=== PATIENT | male | born 1960 | race Two or more races ===

== ENCOUNTER 2017-10-07 01:26 | Inpatient (IN) | payer OTHER ==
[2017-10-07] VITALS (32 sets, daily range): BP systolic 94–143; BP diastolic 59–85
[~2017-10-07] VITALS: Ht 177.8 cm; Wt 70.8 kg
--- NOTE | 2017-10-07 01:40 | NUR ---
[id number] FR 4 SEASONS FOR FEVER 102, FAST HR 140'S IN THE FIELD, RECENT TBI W/ SUBDURAL HEMATOMA SX 09/20/17. PT TRANSFERED TO ER BED5 EVERARDO. PT IS AAOX0. PT SKIN IS PINK AND HOT TO TOUCH. PT RESP EVEN AND NO RESP DISTRESS NOTED. PT PRESENTS WITH A G-TUBE IN PLACE ALONG WITH A 24G IV ON THE L FOREARM. PT ALSO PRESENTS WITH DREW IN PLACE OVER SCALP. AWAITING MD FOR EVAL.
--- NOTE | 2017-10-07 01:45 | NUR ---
PT TRANSPORTED TO RADIOLOGY FOR CT HEAD.
[2017-10-07] MEDS ORDERED: PIPERACILLIN /TAZOBACTAM 3.375 G in IV D5W 50 ML IV ONE (02:00)
[2017-10-07] MEDS ORDERED: ACETAMINOPHEN 650 MG/SUPP.RECT RC ONE (02:00)
[2017-10-07] MEDS ORDERED: VANCOMYCIN 1 GM in IV D5W 250 ML IV ONE (02:00)
[2017-10-07] MEDS ORDERED: IV NS 0.9% 1,000 ML BAG IV ONE (02:00)
[2017-10-07] MEDS ORDERED: PIPERACILLIN /TAZOBACTAM 3.375 G VIAL IV ONE (02:02)
--- NOTE | 2017-10-07 02:11 | NUR ---
TERE DILLARD TALKING TO RADIOLOGIST.
[2017-10-07 02:20] LABS: BASOPHILS % (AUTO) 0.1 % (0.0-2.0); EOSINOPHILS # (AUTO) 0.1 /CMM (0.0-0.7); EOSINOPHILS % (AUTO) 0.8 % (0.0-6.0); HEMATOCRIT 27 % (39-51); HEMOGLOBIN 9.3 g/dL (13.5-17.5); LYMPHOCYTES % (AUTO) 6.1 % (20.0-44.0); MEAN CORPUSCULAR HEMOGLOBIN 33 PG (26.0-33.0); MEAN CORPUSCULAR HGB CONC 35 g/dl (31.0-36.0); MEAN CORPUSCULAR VOLUME 94 fL (80-96); MONOCYTES # (AUTO) 1.1 /CMM (0.1-1.30); MONOCYTES % (AUTO) 6.9 % (2.0-12.0); NEUTROPHILS % (AUTO) 86.1 % (43.0-81.0); PLATELET COUNT (AUTO) 324 /CMM (150-450); RDW COEFFICIENT OF VARIATION 17.1 (11.5-15.0); RED BLOOD CELL COUNT(AUTO) 2.86 MIL/uL (4.5-6.0); WHITE BLOOD COUNT (AUTO) 16.3 K/uL (4.3-11.0)
[2017-10-07] MEDS ORDERED: ACETAMINOPHEN 650 MG/20.3 ML UDC ONE (02:28)
[2017-10-07] MEDS ORDERED: VANCOMYCIN 1 GM VIAL ONE (02:29)
[2017-10-07 02:35] LABS: CALCIUM, SERUM 9.1 mg/dL (8.5-10.1); CARBON DIOXIDE 23 mmol/L (21-32); CHLORIDE 110 mmol/L (98-107); CREATININE 2.9 mg/dL (0.6-1.3); GLUCOSE 120 mg/dL (74-106); POTASSIUM 3.2 mmol/L (3.5-5.1); SODIUM SERUM 145 mmol/L (136-145); UREA NITROGEN, BLOOD 37 mg/dL (7-18)
[2017-10-07 02:37] LABS: INR 1.13 (0.87-1.13)
[2017-10-07 02:41] LABS: TROPONIN I < 0.017 ng/mL (0.00-0.056)
[2017-10-07 02:42] LABS: ALANINE AMINOTRANSFERASE 42 U/L (12-78); ALKALINE PHOSPHATASE 310 U/L (46-116); ASPARTATE AMINOTRANSFERASE 68 U/L (15-37); BILIRUBIN,DIRECT 1.7 mg/dL (0.0-0.2); BILIRUBIN,TOTAL 3.1 mg/dL (0.2-1.0)
[2017-10-07 02:59] LABS: ALBUMIN 1.4 g/dL (3.4-5.0)
--- NOTE | 2017-10-07 03:13 | NUR ---
[facility] CALLED FOR ICU BED.
[2017-10-07 03:30] LABS: APPEARANCE,URINE CLEAR (CLEAR); BILIRUBIN,URINE NEGATIVE (NEGATIVE); BLOOD, URINE 2+ Ery/uL (NEGATIVE); KETONES,URINE NEGATIVE (NEGATIVE); LEUKOCYTE ESTERASE ,URINE NEGATIVE (NEGATIVE); NITRITE, URINE NEGATIVE (NEGATIVE); PROTEIN,URINE 1+ mg/dl (NEGATIVE); UGLUCOSE NEGATIVE (NEGATIVE); UROBILINOGEN,URINE 0.2 EU/dL (0.2)
[2017-10-07 03:32] LABS: COLOR,URINE DARK YELLOW (YELLOW)
[2017-10-07 03:35] LABS: BACTERIA,URINE Moderate /HPF (None Seen); RBC,URINE 21-50 /HPF (0-2); SQUAMOUS EPITHELIAL CELL,UR Moderate /HPF (None Seen)
[2017-10-07] MEDS ORDERED: ACETAMINOPHEN 325 MG TABLET MC STA (03:38)
--- NOTE | 2017-10-07 03:44 | NUR ---
GAVE REPORT TO ICU NURSE PRAFUL FOR CIRA, PT BEING TRANSPORTED VIA ACLS PROTOCOL.
--- NOTE | 2017-10-07 04:11 | NUR ---
rt bedside to receive vbg
[2017-10-07 04:13] LABS: ABG BASE EXCESS -5.3 mmol/L; ABG OXYGEN SATURATION 92.9 % (92.0-98.5); ABG PCO2 29.2 mmHg (35.0-45.0); ABG PH 7.416 (7.350-7.450); ABG PO2 68.7 mmHg (75.0-100.0); COHb 0.9 % (0.5-1.5); MetHb 0.6 % (0.0-1.5); O2Hb 91.5 % (94.0-97.0); VENT MODE, BG VENOUS 2L NC
[2017-10-07] MEDS ORDERED: MAG HYDROX/AL HYDROX/SIMETH 30 ML UDC PO PRN (04:30)
[2017-10-07] MEDS ORDERED: Z GUARD REMEDY 2 OZ OINT TP PRN (04:30)
[2017-10-07] MEDS ORDERED: MAGNESIUM HYDROXIDE 30 ML UDC PO PRN (04:30)
[2017-10-07] MEDS ORDERED: ZOLPIDEM TARTRATE 5 MG TABLET PO PRN (04:30)
[2017-10-07] MEDS ORDERED: ACETAMINOPHEN 325 MG TABLET PO PRN (04:30)
[2017-10-07] MEDS ORDERED: ONDANSETRON HCL/PF 4 MG/2 ML VIAL IVP PRN (04:30)
--- NOTE | 2017-10-07 05:15 | NUR ---
PT TRANSFERED TO ICU. ACLS PROTOCOLS INITIATED DURING TRANSPORT.
[2017-10-07] MEDS: IV NS 0.9% 1,000 ML IV PRN ×2 (05:29→16:48)
--- NOTE | 2017-10-07 05:40 | NUR ---
DEPUTY DIRECTOR OF NURSING;' ADMISSION NOTE: RECEIVED PT FROM ER AT 0505, DX SEPSIS, PNEUMONIA, ADMITTED UNDER DR KNAPP, PT IS AAO X1-2 WITH SOMEWHAT CONFUSION. PATIENT RECENTLY DISCHARGED FROM [facility] AFTER HAD CRANIOTOMY DONE THERE DUE TO TBI. ON 3L NASAL CANNULA SATURATING 98%. SEPSIS PROTOCOL INITIATED IN ER, 2.7L FLUID CHALLANGED COMPLETED. V/S STABLE. ONGOING NS AT 125 ML/HR. PATIENT NOT IN ANY DISTRESS AT THIS TIME. PIV LEFT AND RIGHT HAND # 18, THERE IS PIV FROM [facility]IT[facility] LEFT FOREARM #24. SKIN ISSUE, SACRUM SEVERE REDNESS, EXCORIATION ON PERIANAL AREAS ALONG WITH RASHES. S/P CRANIOTOMY DREW PRESENT ON FRONTAL PART OF HEAD, INTACT, NO DRAINAGE NOTED. WOUND CARE CONSULTED. G-TUBE INTACT, CLAMPED. WILL ENDORSE CARE TO NEXT SHIFT.
[2017-10-07] MEDS ORDERED: PANT40TA2 GT (06:11)
[2017-10-07] MEDS ORDERED: FOLI1TAB16 GT (06:11)
[2017-10-07] MEDS ORDERED: OXCA300T GT (06:11)
[2017-10-07] MEDS ORDERED: AMAN100T GT (06:11)
[2017-10-07] MEDS ORDERED: ATOR20TA GT (06:11)
[2017-10-07] MEDS ORDERED: LEVE1000 GT (06:11)
[2017-10-07] MEDS ORDERED: HEPA500020 SUBCUT (06:11)
[2017-10-07] MEDS ORDERED: PRAZ2CAP2 GT (06:11)
[2017-10-07] MEDS ORDERED: BUSP15TA3 GT (06:14)
[2017-10-07] MEDS ORDERED: FLUO40CA49 GT (06:14)
[2017-10-07] MEDS ORDERED: LACT-209 GT (06:15)
--- NOTE | 2017-10-07 06:21 | NUR ---
WOMEN DESIGNER; 0600 ZOSYN DOSE NOT GIVEN , BECAUSE ITS TOO EARLY, LAST DOSE GIVEN IN ER AT 0200. CURRENT FREQUENCY Q6H. WILL ENDORSE TO NEXT SHIFT . NEXT DOSE WILL BE AT 0800 AM.
[2017-10-07 07:30] LABS: BASOPHILS % (AUTO) 0.1 % (0.0-2.0); EOSINOPHILS # (AUTO) 0.2 /CMM (0.0-0.7); EOSINOPHILS % (AUTO) 1.7 % (0.0-6.0); HEMATOCRIT 28 % (39-51); HEMOGLOBIN 9.3 g/dL (13.5-17.5); LYMPHOCYTES % (AUTO) 6.6 % (20.0-44.0); MEAN CORPUSCULAR HEMOGLOBIN 32 PG (26.0-33.0); MEAN CORPUSCULAR HGB CONC 34 g/dl (31.0-36.0); MEAN CORPUSCULAR VOLUME 95 fL (80-96); MONOCYTES % (AUTO) 6.9 % (2.0-12.0); NEUTROPHILS # (AUTO) 12.7 /CMM (1.8-8.9); NEUTROPHILS % (AUTO) 84.7 % (43.0-81.0); PLATELET COUNT (AUTO) 304 /CMM (150-450); RDW COEFFICIENT OF VARIATION 17.2 (11.5-15.0); RED BLOOD CELL COUNT(AUTO) 2.89 MIL/uL (4.5-6.0)
[2017-10-07 07:52] LABS: ALBUMIN 1.3 g/dL (3.4-5.0); BILIRUBIN,TOTAL 2.4 mg/dL (0.2-1.0); CALCIUM, SERUM 8.2 mg/dL (8.5-10.1); CREATININE 2.9 mg/dL (0.6-1.3); POTASSIUM 3.5 mmol/L (3.5-5.1); TOTAL PROTEIN, SERUM 5.8 g/dL (6.4-8.2)
[2017-10-07] MEDS ORDERED: NS 0.9% IV SCH ×2 (08:00→08:01)
[2017-10-07] MEDS ORDERED: TAZOBACTAM IV SCH ×2 (08:00→08:01)
[2017-10-07] MEDS ORDERED: PIPERACILLIN IV SCH ×2 (08:00→08:01)
--- NOTE | 2017-10-07 08:00 | NUR ---
ICU/RN INITIAL NOTES,AM RECEIVED REPORT FROM NIGHT NURSE. PT ALERT, AWAKE, FOLLOWS COMMANDS. ON NASAL CANULA, 2 LITERS, TOLERATING WELL, NO ACUTE DISTRESS NOTED. PT SINUS TACKY ON TELE 111. VSS. GTUBE IN PLACE, CLAMPED AT THIS TIME. PIV'S PATENT AND INTACT, NO S/S OF INFECTION OR INFILTRATION NOTED. IV FLUIDS INFUSING ORDERED. MCKENZIE IN PLACE, URINE OUTPUT NOTED. ALL NEEDS WILL BE MET, SAFETY MEASURES TAKEN, BED IN LOW POSITION, SIDE RAILS UP, CALL LIGHT WITHIN REACH. WILL CONTINUE CARE
--- NOTE | 2017-10-07 08:08 | NUR ---
WOUND CARE CONSULT: PT PRESENTS WITH DEEP TISSUE INJURY WHICH IS INTACT TO SACRAL AREA, PRESENT ON ADMISSION. PT ALSO NOTED TO HAVE RASH TO PERINEUM, GROIN AREAS AND BUTTOCKS, PRESENT ON ADMISSION. HEAD HAS DREW. NO DRAINAGE NOTED. PT IS INCONTINENT WITH CURRENT ANNA SCORE OF 13. ALL SKIN PROTECTION MEASURES IN PLACE AND DISCUSSED WITH NURSING STAFF. WILL SEE PRN. DILLARD IN AGREEMENT WITH PLAN OF CARE. Addendum: 10/07/17 at 0810 by JARRETT CLIFTON WNDNU Amended: Links added.
--- NOTE | 2017-10-07 08:15 | NUR ---
ICU/RN: WOUND CARE AT BEDSIDE. PT ASSESSED. NEW ORDERS RECEIVED, WILL FOLLOW THROUGH. PT TURNED AND REPOSITIONED.
[2017-10-07] MEDS ORDERED: FEE PK DOSING 1 MIN EA MC ONE (08:22)
[2017-10-07] MEDS: NS 0.9% IV SCH ×4 (08:30→23:47)
[2017-10-07] MEDS: TAZOBACTAM IV SCH ×4 (08:30→23:47)
[2017-10-07] MEDS: PIPERACILLIN IV SCH ×4 (08:30→23:47)
[2017-10-07] MEDS: PANTOPRAZOLE 40 MG VIAL IV SCH (08:30)
--- NOTE | 2017-10-07 09:03 | NUR ---
ICU/RN: US AT BEDSIDE FOR ABDOMINAL US
[2017-10-07] MEDS: CLOTRIMAZOLE 1% 15 GM TUBE TP SCH ×2 (09:46→17:42)
--- NOTE | 2017-10-07 11:30 | NUR ---
ICU/RN: ORDERS FOR MRI W W/O CONTRAST. PER DR. CHRISTIE PT IS NOT ABLE TO HAVE CONTRAST DUE TO HIGH BUN AND CREATINE LEVELS. PER RADIOLOGY AND NEURO OK TO GO TO MRI WITH SURGICAL DREW AND SHOULDER CLIP.
--- NOTE | 2017-10-07 12:30 | NUR ---
ICU/RN: TRANSPORTED PT BACK FROM MRI WITH ACLS GUIDELINES, VSS, NO DISTRESS NOTED. WILL CONTINUE TO MONITOR AND ASSESS.
[2017-10-07] MEDS: OXCARBAZEPINE 150 MG TABLET PO SCH ×2 (13:48→17:42)
[2017-10-07] MEDS: LEVETIRACETAM (500MG) 500 MG in IV NS 0.9% 100 ML IV SCH (13:57)
[2017-10-07 16:41] LABS: CREATININE, URINE 41.1 MG/DL (30.0-125.0)
--- NOTE | 2017-10-07 18:41 | NUR ---
ICU/RN ENDING NOTES,AM REPORT WILL BE ENDORSED TO NIGHT NURSE FOR CONTINUATION OF CARE. PT ALERT, FOLLOWS COMMANDS. ON NASAL CANULA, NO DISTRESS NOTED. SINUS TACK ON TELE. VSS. MRI RESULTS IN, DISCUSSED WITH FAMILY. PT BATHE, TURNED AND REPOSITIONED, LINENS CHANGED. CIRA.
[2017-10-07] MEDS: FIBERSOURCE HN 1,000 ML BOTTLE GT PRN (18:45)
[2017-10-07] MEDS: IPRATROPIUM NEB FS 0.5 MG/2.5 ML AMPUL.NEB NEB SCH (19:40)
[2017-10-07] MEDS: ALBUTEROL HALF STRENGTH 1.25 MG/3 ML VIAL.NEB NEB SCH (19:40)
--- NOTE | 2017-10-07 20:52 | NUR ---
MEAT CLERK. INITIALA SSESSMENT. RECEIVED THE PT REST ON THE BED. AWAKE, ALERT, CONFUSED. OXYGEN 2L VIA NASAL CANNULA SAT 98%. PACKAGER MACHINE SHOWING S TACH. IV RT HAND 18G, IVF NS 125ML/H,GT INTACT. FIBER SOURCE 40ML/H,HOB ELEVATED, FC PATENT. WILL CONTINUE TO MONITOR VITALS.
[2017-10-08] VITALS (40 sets, daily range): BP systolic 103–135; BP diastolic 60–85
[2017-10-08] MEDS: ALBUTEROL HALF STRENGTH 1.25 MG/3 ML VIAL.NEB NEB SCH ×4 (01:03→20:11)
[2017-10-08] MEDS: IPRATROPIUM NEB FS 0.5 MG/2.5 ML AMPUL.NEB NEB SCH ×4 (01:03→20:12)
[2017-10-08] MEDS: LEVETIRACETAM (500MG) 500 MG in IV NS 0.9% 100 ML IV SCH ×2 (01:47→12:57)
[2017-10-08] MEDS: IV NS 0.9% 1,000 ML IV PRN ×2 (01:47→15:56)
[2017-10-08] MEDS: VANCOMYCIN 1 GM in IV D5W 250 ML IV SCH (02:34)
--- NOTE | 2017-10-08 03:24 | NUR ---
TECHNICAL EDITOR. AM CARE, ORAL CARE, BED BATH GIVEN. LINEN CHANGED, REMAINING SAME OXYGEN 2L VIA NASAL CANNULA. TOLERATED WELL. SAT 99%. TELEPHONE SEX WORKER SHOWING S TACH. FC PATENT. IV RT HAND 20G. IVF NS 125 ML/H, HOB ELEVATED. TURN AND REPOSITION Q2H. WILL CONYINUE TO MONITOR VITALS.
[2017-10-08 04:42] LABS: EOSINOPHILS # (AUTO) 0.4 /CMM (0.0-0.7); EOSINOPHILS % (AUTO) 2.5 % (0.0-6.0); HEMATOCRIT 27 % (39-51); HEMOGLOBIN 9.1 g/dL (13.5-17.5); LYMPHOCYTES # (AUTO) 1.5 /CMM (0.8-4.8); LYMPHOCYTES % (AUTO) 10.1 % (20.0-44.0); MEAN CORPUSCULAR HEMOGLOBIN 32 PG (26.0-33.0); MEAN CORPUSCULAR HGB CONC 34 g/dl (31.0-36.0); MEAN CORPUSCULAR VOLUME 94 fL (80-96); MONOCYTES # (AUTO) 1.1 /CMM (0.1-1.30); MONOCYTES % (AUTO) 7.7 % (2.0-12.0); NEUTROPHILS # (AUTO) 11.5 /CMM (1.8-8.9); NEUTROPHILS % (AUTO) 79.7 % (43.0-81.0); PLATELET COUNT (AUTO) 261 /CMM (150-450); RDW COEFFICIENT OF VARIATION 17.4 (11.5-15.0); RED BLOOD CELL COUNT(AUTO) 2.82 MIL/uL (4.5-6.0); WHITE BLOOD COUNT (AUTO) 14.4 K/uL (4.3-11.0)
[2017-10-08 05:15] LABS: BILIRUBIN,TOTAL 1.8 mg/dL (0.2-1.0); CREATININE 2.6 mg/dL (0.6-1.3); MAGNESIUM 1.3 mg/dL (1.8-2.4); PHOSPHORUS 4.7 mg/dL (2.5-4.9); TOTAL PROTEIN, SERUM 5.9 g/dL (6.4-8.2)
[2017-10-08 05:24] LABS: ALBUMIN 1.2 g/dL (3.4-5.0)
[2017-10-08] MEDS: NS 0.9% IV SCH ×4 (05:46→23:37)
[2017-10-08] MEDS: PIPERACILLIN IV SCH ×4 (05:46→23:37)
[2017-10-08] MEDS: TAZOBACTAM IV SCH ×4 (05:46→23:37)
--- NOTE | 2017-10-08 07:56 | NUR ---
ICU/RN INITIAL NOTES,AM RECEIVED REPORT FROM NIGHT NURSE. PT ALERT, AWAKE, FOLLOWS COMMANDS, CONFUSED. ON NASAL CANULA, 2 LITERS, TOLERATING WELL, NO ACUTE DISTRESS NOTED. PT SINUS, 92. VSS. GTUBE IN PLACE, GTUBE FEEDING INFUSING ORDERED, TOLERATING WELL. PIV'S PATENT AND INTACT, NO S/S OF INFECTION OR INFILTRATION NOTED. IV FLUIDS INFUSING ORDERED. MCKENZIE IN PLACE, URINE OUTPUT NOTED. ALL NEEDS WILL BE MET, SAFETY MEASURES TAKEN, BED IN LOW POSITION, SIDE RAILS UP, CALL LIGHT WITHIN REACH. WILL CONTINUE CARE
[2017-10-08] MEDS: OXCARBAZEPINE 150 MG TABLET PO SCH ×3 (08:45→17:04)
[2017-10-08] MEDS: PANTOPRAZOLE 40 MG VIAL IV SCH (08:45)
[2017-10-08] MEDS: Magnesium 1GM/D5W 100ML PREMIX 100 ML IV SCH ×2 (08:45→10:06)
[2017-10-08] MEDS: POTASSIUM CHLORIDE 20 MEQ POWDER PACKET NG SCH ×3 (08:45→11:29)
[2017-10-08] MEDS: CLOTRIMAZOLE 1% 15 GM TUBE TP SCH ×2 (08:51→17:05)
[2017-10-08] MEDS ORDERED: Z GUARD REMEDY 4 OZ OINT TP PRN (09:00)
--- NOTE | 2017-10-08 10:15 | NUR ---
ICU/RN: PER PRIMARY AWAITING FOR NEUROSURGERY CONSULT. LEFT MESSAGE FOR AGAPITO MIMS, AWAITING FOR CALL BACK.
--- NOTE | 2017-10-08 15:30 | NUR ---
ICU/RN: CALLED AND LEFT MESSAGE, AWAITING FOR CALL BACK. CONSULT PENDING. WILL FOLLOW UP.
[2017-10-08] MEDS: FIBERSOURCE HN 1,000 ML BOTTLE GT PRN (16:59)
[2017-10-08] MEDS: LACTOBACILLUS RHAMNOSUS GG 1 EACH CAP.SPRINK GT SCH (17:04)
--- NOTE | 2017-10-08 18:29 | NUR ---
ICU/RN ENDING NOTES,AM REPORT WILL BE ENDORSED TO NIGHT NURSE FOR CONTINUATION OF CARE. PT ALERT, FOLLOWS COMMANDS. ON ROOM AIR, NO DISTRESS NOTED, MAINTAINING O2 SAT >95%. SINUS ON TELE, 99. VSS. STILL AWAITING FOR TO COME AND CONSULT PT, MESSAGE LEFT, ADJUNCT COMMUNICATIONS FACULTY MEMBER NOTIFIED. PT BATHE, TURNED AND REPOSITIONED, LINENS CHANGED. BED IN LOW POSITION, SIDE RIALS UP, CALL LIGHT WITHIN REACH. WILL CONTINUE CARE.
--- NOTE | 2017-10-08 19:04 | NUR ---
ICU/RN: AGAPITO MIMS AT BEDSIDE, PT BEING ASSESSED, AWAITING FOR ORDERS.
--- NOTE | 2017-10-08 19:35 | NUR ---
LEAD MATERIAL HANDLER. INITIAL ASSESSMENT. RECEIVED THE PT REST ON THE BED. AWAKE, ALERT, FOLLOW COMMANDS. ACADEMY DIRECTOR SHOWING NSR, IV RT HAND 18G. IVF NS 125ML/H. GT INTACT. FIBER SOURCE 60ML/H. HOB ELEVATED. FC PATENT. HOB ELEVATED. CRANIOTOMY INCISION DREW INTACT. WILL CONTINUE TO MONITOR VITALS.
[2017-10-09] VITALS (22 sets, daily range): BP systolic 118–141; BP diastolic 60–92
[2017-10-09] MEDS: LEVETIRACETAM (500MG) 500 MG in IV NS 0.9% 100 ML IV SCH (00:29)
[2017-10-09] MEDS: IV NS 0.9% 1,000 ML IV PRN ×3 (00:30→21:50)
[2017-10-09] MEDS: ALBUTEROL HALF STRENGTH 1.25 MG/3 ML VIAL.NEB NEB SCH ×4 (01:22→20:09)
[2017-10-09] MEDS: IPRATROPIUM NEB FS 0.5 MG/2.5 ML AMPUL.NEB NEB SCH ×4 (01:22→20:09)
[2017-10-09] MEDS: VANCOMYCIN 1 GM in IV D5W 250 ML IV SCH (01:58)
[2017-10-09 05:18] LABS: CALCIUM, SERUM 8.1 mg/dL (8.5-10.1); CREATININE 2.5 mg/dL (0.6-1.3); POTASSIUM 3.5 mmol/L (3.5-5.1)
[2017-10-09] MEDS: PIPERACILLIN IV SCH ×2 (05:18→11:26)
[2017-10-09] MEDS: NS 0.9% IV SCH ×2 (05:18→11:26)
[2017-10-09] MEDS: TAZOBACTAM IV SCH ×2 (05:18→11:26)
--- NOTE | 2017-10-09 08:00 | NUR ---
ICU/RN: Neuro Check: Pt alert to self, follows commands, with good bilat upper and lower strength. Pupils PERRLA, no tracking/gaze deficit. Pt speech is clear however with periods of expressive aphasia. Responds better with yes/no questions and able to communicate needs. Oriented to unit and use of call light.
[2017-10-09] MEDS: LACTOBACILLUS RHAMNOSUS GG 1 EACH CAP.SPRINK GT SCH ×2 (08:17→17:58)
[2017-10-09] MEDS: PANTOPRAZOLE 40 MG VIAL IV SCH (08:17)
[2017-10-09] MEDS: OXCARBAZEPINE 150 MG TABLET PO SCH ×3 (08:17→17:58)
[2017-10-09] MEDS: LEVETIRACETAM SOL (5 ML) 100 MG/ML UDC GT SCH ×2 (08:17→20:54)
[2017-10-09] MEDS: CLOTRIMAZOLE 1% 15 GM TUBE TP SCH ×2 (08:18→17:59)
[2017-10-09] MEDS: FIBERSOURCE HN 1,000 ML BOTTLE GT PRN (08:30)
--- NOTE | 2017-10-09 09:45 | NUR ---
ICU/RN: Speech therapist at bedside, refusing swallow eval, requests to have it at later time.
--- NOTE | 2017-10-09 12:00 | NUR ---
ICU/RN: Dr Wright at bedside; updated on pt status, informed that Dr Oliver cleared pt for downgrade for tele. Per MD, "pt can leave ICU and go to tele."
--- NOTE | 2017-10-09 12:15 | NUR ---
ICU/RN: Informed daughter, Yolanda Miguel Ángel regarding pt transfer out of ICU.
--- NOTE | 2017-10-09 12:30 | NUR ---
ICU/RN: Pt transferred to tele [id number]; on O2 2L/min via NC. Placed on tele monitor. geoscience professor Sander at bedside, primary RN unavailable - telephone report given prior to transfer to [facility] for CIRA. Pt now requesting to eat - informed that swallow eval pending, pt refused earlier this am. Pt denies any pain or discomfort. geoscience professor aware.
--- NOTE | 2017-10-09 13:20 | NUR ---
- RECEIVED PATIENT ALERT , X1 BUT REFUSED TO BE ASESSED, STATED " i DO NOT WANT TO BE TOUCHED. pATIENT WAS KEPT COMFORTABLE & WAS CLOSELY MONITORED.GT FEEDING WAS CONNECTED, MCKENZIE CATHETER DRAINING CLEAR YELLOW URINE, O2 WAS IN AT 2L/MIN VIA N/C. , IV site with infusing IV.
[2017-10-09] MEDS: PIPERACILLIN /TAZOBACTAM 3.375 G in IV D5W 50 ML IV SCH ×2 (17:58→23:15)
--- NOTE | 2017-10-09 19:30 | NUR ---
TECHNOLOGY AUDITOR OPENING NOTES: RECEIVED PT IN BED AND IS IN SEMI-GOMEZ'S POSITION. PT ON G TUBE FEEDING WITH FIBERSOURCE RUNNING AT 60ML/HR. NO RESIDUAL NOTED. PT ALSO ON TELE MONITOR. PT HAS MCKENZIE CATH AND IS ATTACHED TO DRAINAGE BAG WITH YELLOW URINE DRAINING. PT HAS IV ON R HAND IS BEING INFUSED WITH NS AT 125ML/HR. PT REFUSING TO HAVE HIS NASAL CANNULA APPLIED AT THE MOMENT. NOTED DREW ON HEAD. CALL LIGHT WITHIN PT'S REACH. BED KEPT IN LOW, LOCKED POSITION, AND SIDE RAILS X 2UP. WILL CONTINUE TO MONITOR PT.
--- NOTE | 2017-10-09 22:49 | NUR ---
RN NOTES: PT REFUSING NASAL CANNULA.
[2017-10-10] VITALS: BP 129/86
--- NOTE | 2017-10-10 00:36 | NUR ---
CAN FEEDER NOTES: PT FOUND WITH G TUBE DISLODGED. DRESSING APPLIED. CALLED [facility]. AWAITING FOR CALL BACK.
--- NOTE | 2017-10-10 01:01 | NUR ---
SUPPLY CHAIN SPECIALIST NOTES: SPOKE WITH DR. SEWELL AND INFORMED HIM OF G TUBE THAT WAS DISLODGED BY PATIENT. GOT ORDER TO CHANGE IV FLUIDS TO D5NS AT 90ML/HR AND ALSO TO CHANGE THE KEPPRA TO IV Q12HR. ALSO, TO GET A GI CONSULT.
[2017-10-10] MEDS: IV D5/ 0.9% NACL 1,000 ML IV PRN ×2 (01:22→18:13)
[2017-10-10] MEDS: VANCOMYCIN 1 GM in IV D5W 250 ML IV SCH (01:34)
[2017-10-10] MEDS: ALBUTEROL HALF STRENGTH 1.25 MG/3 ML VIAL.NEB NEB SCH ×4 (02:00→20:00)
[2017-10-10] MEDS: IPRATROPIUM NEB FS 0.5 MG/2.5 ML AMPUL.NEB NEB SCH ×4 (02:00→20:00)
[2017-10-10 04:00] VITALS: BP 137/86
[2017-10-10] MEDS: PIPERACILLIN /TAZOBACTAM 3.375 G in IV D5W 50 ML IV SCH ×4 (05:20→23:06)
[2017-10-10 06:27] LABS: CALCIUM, SERUM 8.6 mg/dL (8.5-10.1); CREATININE 2.3 mg/dL (0.6-1.3); POTASSIUM 3.3 mmol/L (3.5-5.1)
--- NOTE | 2017-10-10 06:40 | NUR ---
DIVISION SUPERINTENDENT CLOSING NOTES: ALL NEEDS WERE ATTENDED AND ANTICIPATED FOR. PT IS ASLEEP IN BED AT THIS TIME. PT KEEPS REMOVING NASAL CANNULA AND GOWN. DRESSING HAS BEEN APPLIED ON G TUBE SITE. GI CONSULT HAS BEEN PLACED IN ORDERS. PT ON TELE MONITOR AND READING SHOWS SR 93. PT HAS MCKENZIE CATH AND IS ATTACHED TO DRAINAGE BAG WITH YELLOW URINE DRAINING. MCKENZIE CATH OUTPUT WAS 2550M. PT IS NPO. PT HAS L ARM #24 G AND HAS IS PATENT AND INTACT. PT ALSO HAS R HAND #18G IV AND IS BEING INFUSED WITH D5NS AT 90ML/HR. WOUND TREATMENT HAS BEEN PERFORMED. PT TURNED Q2HRS. DREW REMAIN ON HEAD AND KEPT CLEAN AND DRY. CALL LIGHT WITHIN PT'S REACH. BED KEPT IN LOW, LOCKED POSITION, AND SIDE RAILS X 3 UP. BED ALARM ACTIVATED. WILL ENDORSE TO AM NURSE FOR CIRA.
[2017-10-10] MEDS: PANTOPRAZOLE 40 MG VIAL IV SCH ×2 (07:30→08:59)
--- NOTE | 2017-10-10 07:38 | NUR ---
FIRE ALARM OPERATOR OPENING NOTES RECEIVED PATIENT IN STABLE CONDITION. IN NO APPARENT DISTRESS. BEDSIDE RAILS ARE UPX2. BED IS LOCKED AND LOWERED. CALL LIGHT IS WITHIN REACH. WILL CONTINUE TO MONITOR.
[2017-10-10 08:00] VITALS: BP 144/85
[2017-10-10] MEDS: LACTOBACILLUS RHAMNOSUS GG 1 EACH CAP.SPRINK GT SCH ×2 (08:17→16:06)
[2017-10-10] MEDS: OXCARBAZEPINE 150 MG TABLET PO SCH ×3 (08:17→16:06)
[2017-10-10 08:34] LABS: BASOPHILS % (AUTO) 0.3 % (0.0-2.0); EOSINOPHILS # (AUTO) 0.5 /CMM (0.0-0.7); EOSINOPHILS % (AUTO) 3.6 % (0.0-6.0); HEMATOCRIT 28 % (39-51); HEMOGLOBIN 9.4 g/dL (13.5-17.5); LYMPHOCYTES % (AUTO) 14.9 % (20.0-44.0); MEAN CORPUSCULAR HEMOGLOBIN 32 PG (26.0-33.0); MEAN CORPUSCULAR HGB CONC 34 g/dl (31.0-36.0); MEAN CORPUSCULAR VOLUME 95 fL (80-96); MONOCYTES % (AUTO) 7.5 % (2.0-12.0); NEUTROPHILS % (AUTO) 73.7 % (43.0-81.0); PLATELET COUNT (AUTO) 270 /CMM (150-450); RDW COEFFICIENT OF VARIATION 17.5 (11.5-15.0); RED BLOOD CELL COUNT(AUTO) 2.93 MIL/uL (4.5-6.0); WHITE BLOOD COUNT (AUTO) 13.6 K/uL (4.3-11.0)
[2017-10-10] MEDS: CLOTRIMAZOLE 1% 15 GM TUBE TP SCH ×2 (09:06→16:06)
[2017-10-10] MEDS: LEVETIRACETAM (500MG) 500 MG in IV NS 0.9% 100 ML IV SCH ×2 (09:22→21:06)
--- NOTE | 2017-10-10 09:26 | NUR ---
HELD PATIENTS CULTURELLE AND TRILEPTAL DUE TO NPO STATUS. PATIENT REMOVED G TUBE DURING RELAY MECHANIC AT 0030. DR SEWELL IS AWARE. GI CONSULT TODAY.
--- NOTE | 2017-10-10 11:20 | NUR ---
CALLED PHARMACY TO PROVIDE POTASSIUM BAG. PHARMACY WILL PROVIDE.
[2017-10-10] MEDS ORDERED: POTASSIUM CL. PREMIX PERIPHER. 50 ML IV SCH (11:21)
[2017-10-10] MEDS ORDERED: POTASSIUM CHLORIDE 20 MEQ POWDER PACKET GT ONE (11:30)
--- NOTE | 2017-10-10 12:00 | NUR ---
INFORMED AGAPITO FRANCIS THAT THERE IS A GI CONSULT ORDER.
[2017-10-10 16:00] VITALS: BP 139/83
--- NOTE | 2017-10-10 17:00 | NUR ---
GI CONSULT WILL BE PERFORMED BY DR. ROBINS.
--- NOTE | 2017-10-10 19:00 | NUR ---
MS RN CLOSING NOTES PATIENT IS RESTING IN BED. IN NO APPARENT DISTRESS. BEDSIDE RAILS ARE UPX2. BED IS LOCKED AND LOWERED. CALL LIGHT IS WITHIN REACH. ALL NEEDS WERE MET. WILL ENDORSE CARE TO SUPERVISOR ROLLING ROOM NURSE FOR CIRA.
[2017-10-10 20:00] VITALS: BP 142/84
--- NOTE | 2017-10-10 20:00 | NUR ---
ms/rn opening notes' PATIENT IN BED, OBSERVED UING ACCESS REQUIRE MONITORING, SKIN WARM TO TOUCH,USING ACESSORY MUSCLE IN BREATHING ON 4 L OXYGEN, SEIZURE PRECAUTION VIA NC AT 99 % OXYGENATION, ABLE TO OPEN EYES BUT ALERTX1. RECEIVED ENDORSEMENT FROM AM RN REGARDING PATIENT USE OF ACESSORY MUSCLE SINCE THIS PM AND MONITORING FOR ANY CHANGES.
--- NOTE | 2017-10-10 23:46 | NUR ---
ms/rn notes patient in bed, can open eyes and verbalize simple words, mumbles but can nod , b/p check at 134/88, pulse 99, o2 sat at 99 %, shallow breathing. no grimace and guarding but remove blanket at times, monitoring for any changes.
[2017-10-11] MEDS: IPRATROPIUM NEB FS 0.5 MG/2.5 ML AMPUL.NEB NEB SCH ×4 (01:33→18:51)
[2017-10-11] MEDS: ALBUTEROL HALF STRENGTH 1.25 MG/3 ML VIAL.NEB NEB SCH ×4 (01:33→18:51)
[2017-10-11] MEDS: VANCOMYCIN 1 GM in IV D5W 250 ML IV SCH ×2 (01:49→13:56)
--- NOTE | 2017-10-11 01:53 | NUR ---
ms/rn notes Pharmacy was contacted for latest vanco trough level at 22H, per pharmacy to hold as ordered by .
[2017-10-11 03:15] VITALS: BP 142/84
[2017-10-11] MEDS: PIPERACILLIN /TAZOBACTAM 3.375 G in IV D5W 50 ML IV SCH ×4 (05:11→23:38)
[2017-10-11] MEDS: IV D5/ 0.9% NACL 1,000 ML IV PRN (05:33)
--- NOTE | 2017-10-11 06:55 | NUR ---
ms/rn notes patient reported pain of 8/10 in abdomen, b/p check , alert, oriented x3, will monitor pain effectiveness.
--- NOTE | 2017-10-11 06:56 | NUR ---
314-2 patient in bed, able to sleep during the night, monitoirng for any s/s of respiratopry discomfort, on 4l oxygen via nc due to sob with respiration rate of 25, can open eyes, keep warm, will monitori for any changes, bed in lock position, make rounds. will endorse to am rn for fam.
[2017-10-11 07:29] LABS: BASOPHILS # (AUTO) 0.1 /CMM (0.0-0.2); BASOPHILS % (AUTO) 0.8 % (0.0-2.0); EOSINOPHILS # (AUTO) 0.5 /CMM (0.0-0.7); EOSINOPHILS % (AUTO) 3.7 % (0.0-6.0); HEMATOCRIT 28 % (39-51); HEMOGLOBIN 9.6 g/dL (13.5-17.5); LYMPHOCYTES % (AUTO) 13.8 % (20.0-44.0); MEAN CORPUSCULAR HEMOGLOBIN 32 PG (26.0-33.0); MEAN CORPUSCULAR HGB CONC 34 g/dl (31.0-36.0); MEAN CORPUSCULAR VOLUME 94 fL (80-96); MONOCYTES # (AUTO) 0.9 /CMM (0.1-1.30); MONOCYTES % (AUTO) 6.4 % (2.0-12.0); NEUTROPHILS # (AUTO) 11.1 /CMM (1.8-8.9); NEUTROPHILS % (AUTO) 75.3 % (43.0-81.0); PLATELET COUNT (AUTO) 242 /CMM (150-450); RDW COEFFICIENT OF VARIATION 17.4 (11.5-15.0); RED BLOOD CELL COUNT(AUTO) 2.99 MIL/uL (4.5-6.0); WHITE BLOOD COUNT (AUTO) 14.7 K/uL (4.3-11.0)
--- NOTE | 2017-10-11 07:30 | NUR ---
MS RN OPENING NOTES RECEIVED PATIENT IN STABLE CONDITION. IN NO APPARENT DISTRESS. BEDSIDE RAILS ARE UPX2. BED IS LOCKED AND LOWERED. CALL LIGHT IS WITHIN REACH. IV LINE IS INTACT AND PATENT. WILL CONTINUE TO MONITOR.
[2017-10-11 07:50] LABS: CREATININE 2.4 mg/dL (0.6-1.3); PHOSPHORUS 4.8 mg/dL (2.5-4.9); POTASSIUM 2.9 mmol/L (3.5-5.1)
[2017-10-11 08:00] VITALS: BP 137/92
[2017-10-11] MEDS: LACTOBACILLUS RHAMNOSUS GG 1 EACH CAP.SPRINK GT SCH ×2 (08:03→16:00)
[2017-10-11] MEDS: OXCARBAZEPINE 150 MG TABLET PO SCH ×3 (08:03→16:00)
[2017-10-11] MEDS: PANTOPRAZOLE 40 MG VIAL IV SCH (08:07)
[2017-10-11] MEDS: LEVETIRACETAM (500MG) 500 MG in IV NS 0.9% 100 ML IV SCH ×2 (08:08→21:15)
[2017-10-11] MEDS: CLOTRIMAZOLE 1% 15 GM TUBE TP SCH ×2 (08:08→16:00)
[2017-10-11 08:10] LABS: MAGNESIUM 1.2 mg/dL (1.8-2.4)
[2017-10-11] MEDS: Magnesium 1GM/D5W 100ML PREMIX 100 ML IV SCH ×2 (09:59→11:13)
[2017-10-11 10:27] LABS: ABG BASE EXCESS -5.6 mmol/L; ABG OXYGEN SATURATION 96.5 % (92.0-98.5); ABG PCO2 31.1 mmHg (35.0-45.0); ABG PH 7.391 (7.350-7.450); ABG PO2 92.6 mmHg (75.0-100.0); AaDO2 70.3 mmHg; COHb 0.3 % (0.5-1.5); MetHb 0.4 % (0.0-1.5); O2Hb 95.8 % (94.0-97.0); SITE, ABG Right Radial; VENT MODE, BG NASAL CANNULA
[2017-10-11] MEDS: POTASSIUM CL. PREMIX PERIPHER. 50 ML IV SCH ×4 (10:48→15:32)
--- NOTE | 2017-10-11 13:07 | NUR ---
OK TO GIVE VANCO PER PHARMACY.
[2017-10-11] MEDS: VANCOMYCIN 0.75 GM in IV D5W 250 ML IV SCH (14:01)
[2017-10-11] MEDS: IV D5/0.45 NACL 1,000 ML IV PRN (14:08)
[2017-10-11 16:00] VITALS: BP 139/90
--- NOTE | 2017-10-11 18:49 | NUR ---
MS RN CLOSING NOTES PATIENT IS RESTING IN BED IN NO APPARENT DISTRESS. BEDSIDE RAILS ARE UPX2. BED IS LOCKED AND LOWERED. CALL LIGHT IS WITHIN REACH. ALL NEEDS WERE MET. WILL ENDORSE CARE TO ENVIRONMENTAL PROTECTION OFFICER NURSE FOR CIRA.
--- NOTE | 2017-10-11 19:44 | NUR ---
RN INITIAL NOTES RECEIVED PT LAYING IN BED WITH HOB ELEVATED. AWAKE AND RESPONSIVE. RESPIRATIONS ARE EVEN AND UNLABORED, NOT IN ANY ACUTE DISTRESS NOTED. CURRENTLY ON O2 @2L/MIN VIA NC, SATURATING AT 95%. NO FACIAL GRIMACING OR MOANING NOTED. IV TO LFA AND RIGHT HAND INTACT, PATENT. DRESSING KEPT CLEAN AND DRY. SAFETY MEASURES IN PLACE. INSTRUCTED PT TO USE CALL LIGHT WHEN ASSISTANCE IS NEEDED, NEEDS REINFORCEMENT. CALL LIGHT IS LEFT WITHIN REACH. WILL CONTINUE TO MONITOR PT THROUGHOUT SHIFT.
[2017-10-11 20:00] VITALS: BP 134/87
[2017-10-12] MEDS: IPRATROPIUM NEB FS 0.5 MG/2.5 ML AMPUL.NEB NEB SCH ×4 (01:10→20:00)
[2017-10-12] MEDS: ALBUTEROL HALF STRENGTH 1.25 MG/3 ML VIAL.NEB NEB SCH ×4 (01:10→20:00)
[2017-10-12] MEDS: IV D5/0.45 NACL 1,000 ML IV PRN ×2 (02:18→21:38)
[2017-10-12] MEDS: PIPERACILLIN /TAZOBACTAM 3.375 G in IV D5W 50 ML IV SCH ×3 (05:08→17:06)
--- NOTE | 2017-10-12 06:18 | NUR ---
RN CLOSING NOTES ALL DUE MEDS GIVEN. NEEDS MET AND ANTICIPATED. AWAKE AND RESPONSIVE. AFEBRILE, RESPIRATIONS ARE EVEN AND UNLABORED, NOT IN ANY ACUTE DISTRESS NOTED. PT DENIES ANY SOB, N/V, CHEST PAIN. IV TO RIGHT HAND AND LFA INTACT, NO INFILTRATION NOTED. DRESSING KEPT CLEAN AND DRY. CURRENTLY HAS A MCKENZIE CATH, FREE OF KINKS AND DRAINING WELL. URINE NOTED TO BE CLEAR YELLOW W/ NO SEDIMENTS OR HEMATURIA NOTED. DENIES ANY BLADDER DISCOMFORT. SAFETY MEASURES IN PLACE. BED IS IN ITS LOWEST AND LOCKED POSITION. INSTRUCTED PT TO USE CALL LIGHT WHEN ASSISTANCE IS NEEDED, CALL LIGHT IS LEFT WITHIN REACH. WILL ENDORSE TO NEXT SHIFT FOR CONTINUITY OF CARE.
[2017-10-12 07:09] LABS: CALCIUM, SERUM 8.5 mg/dL (8.5-10.1); CREATININE 2.3 mg/dL (0.6-1.3); MAGNESIUM 1.4 mg/dL (1.8-2.4); POTASSIUM 2.9 mmol/L (3.5-5.1)
--- NOTE | 2017-10-12 07:30 | NUR ---
MS RN OPENING NOTES RECEIVED PATIENT IN STABLE CONDITION. IN NO APPARENT DISTRESS. BEDSIDE RAILS ARE UPX2. BED IS LOCKED AND LOWERED. CALL LIGHT IS WITHIN REACH. WILL CONTINUE TO MONITOR.
[2017-10-12 08:00] VITALS: BP 132/76
[2017-10-12] MEDS: LACTOBACILLUS RHAMNOSUS GG 1 EACH CAP.SPRINK GT SCH ×2 (09:00→16:31)
[2017-10-12] MEDS: OXCARBAZEPINE 150 MG TABLET PO SCH ×3 (09:00→16:31)
[2017-10-12] MEDS: PANTOPRAZOLE 40 MG VIAL IV SCH (09:01)
[2017-10-12] MEDS: CLOTRIMAZOLE 1% 15 GM TUBE TP SCH ×2 (09:02→16:32)
[2017-10-12] MEDS: LEVETIRACETAM (500MG) 500 MG in IV NS 0.9% 100 ML IV SCH ×2 (09:02→21:35)
[2017-10-12] MEDS: Magnesium 1GM/D5W 100ML PREMIX 100 ML IV SCH ×3 (12:36→15:29)
--- NOTE | 2017-10-12 13:00 | NUR ---
SPOKE TO DR KNAPP IN REGARDS TO FOLLOW UP LABS AFTER POTASSIUM REPLACEMENT. NO NEW ORDERS FOR LABS GIVEN.
[2017-10-12] MEDS: VANCOMYCIN 0.75 GM in IV D5W 250 ML IV SCH (13:15)
[2017-10-12] MEDS: POTASSIUM CL. PREMIX PERIPHER. 50 ML IV SCH ×5 (14:43→20:27)
[2017-10-12 16:00] VITALS: BP 114/90
--- NOTE | 2017-10-12 18:46 | NUR ---
MS RN CLOSING NOTES PATIENT IS ALERT AND RESTING IN BED IN NO APPARENT DISTRESS. BEDSIDE RAILS ARE UPX2. BED IS LOCKED AND LOWERED. CALL LIGHT IS WITHIN REACH. ALL NEEDS WERE MET. IV LINE IS PATENT AND INTACT. WILL ENDORSE CARE TO NUMERICAL CONTROL ROUTER OPERATOR NURSE FOR CIRA.
--- NOTE | 2017-10-12 19:35 | NUR ---
RN INITIAL NOTES RECEIVED PT LAYING IN BED WITH HOB ELEVATED. AWAKE AND RESPONSIVE. RESPIRATIONS ARE EVEN AND UNLABORED, NOT IN ANY ACUTE DISTRESS NOTED. DENIES ANY PAIN, SOB, N/V AT THIS TIME. PERIPHERAL IV TO LFA/RFA INTACT, NO INFILTRATION NOTED. DRESSING KEPT CLEAN AND DRY. SAFETY MEASURES IN PLACE. INSTRUCTED PT TO USE CALL LIGHT WHEN ASSISTANCE IS NEEDED, CALL LIGHT IS LEFT WITHIN REACH. WILL CONTINUE TO MONITOR THROUGHOUT SHIFT.
[2017-10-12 20:00] VITALS: BP 133/83
[2017-10-13] MEDS: PIPERACILLIN /TAZOBACTAM 3.375 G in IV D5W 50 ML IV SCH ×3 (00:03→12:30)
[2017-10-13] MEDS: ALBUTEROL HALF STRENGTH 1.25 MG/3 ML VIAL.NEB NEB SCH ×4 (01:43→20:18)
[2017-10-13] MEDS: IPRATROPIUM NEB FS 0.5 MG/2.5 ML AMPUL.NEB NEB SCH ×4 (01:43→20:18)
--- NOTE | 2017-10-13 06:29 | NUR ---
RN CLOSING NOTES ALL DUE MEDS GIVEN. NEEDS MET AND ANTICIPATED. AWAKE AND RESPONSIVE. AFEBRILE, RESPIRATIONS ARE EVEN AND UNLABORED, NOT IN ANY ACUTE DISTRESS NOTED. PT DENIES ANY SOB, N/V, CHEST PAIN. IV TO RFA AND LFA INTACT, NO INFILTRATION NOTED. DRESSING KEPT CLEAN AND DRY. CURRENTLY HAS A MCKENZIE CATH, FREE OF KINKS AND DRAINING WELL. URINE NOTED TO BE CLEAR YELLOW W/ NO SEDIMENTS OR HEMATURIA NOTED. DENIES ANY BLADDER DISCOMFORT. SAFETY MEASURES IN PLACE. BED IS IN ITS LOWEST AND LOCKED POSITION. INSTRUCTED PT TO USE CALL LIGHT WHEN ASSISTANCE IS NEEDED, CALL LIGHT IS LEFT WITHIN REACH. WILL ENDORSE TO NEXT SHIFT FOR CONTINUITY OF CARE.
--- NOTE | 2017-10-13 07:30 | NUR ---
PT RECEIVED RESTING COMFORTABLY IN BED WITH EYES CLOSED. NO S/S OR C/O PAIN OR DISTRESS NOTED. SIDE RAILS UP X2, CALL LIGHT LEFT WITHIN REACH. WILL CONTINUE PLAN OF CARE.
[2017-10-13 08:00] VITALS: BP 134/85
[2017-10-13 08:11] LABS: CALCIUM, SERUM 8.8 mg/dL (8.5-10.1); CREATININE 2.2 mg/dL (0.6-1.3); MAGNESIUM 1.7 mg/dL (1.8-2.4); POTASSIUM 3.1 mmol/L (3.5-5.1)
[2017-10-13] MEDS: OXCARBAZEPINE 150 MG TABLET PO SCH ×3 (09:00→18:47)
[2017-10-13] MEDS ORDERED: POTASSIUM CHLORIDE 20 MEQ TAB.PRT.SR PO ONE (09:00)
[2017-10-13] MEDS: LACTOBACILLUS RHAMNOSUS GG 1 EACH CAP.SPRINK GT SCH ×2 (09:00→18:47)
[2017-10-13] MEDS: PANTOPRAZOLE 40 MG VIAL IV SCH (12:16)
[2017-10-13] MEDS: LEVETIRACETAM (500MG) 500 MG in IV NS 0.9% 100 ML IV SCH ×2 (12:17→20:48)
[2017-10-13] MEDS: CLOTRIMAZOLE 1% 15 GM TUBE TP SCH ×2 (12:17→18:49)
[2017-10-13] MEDS ORDERED: POTASSIUM CHLORIDE 20 MEQ POWDER PACKET GT ONE (14:00)
[2017-10-13] MEDS: VANCOMYCIN 0.75 GM in IV D5W 250 ML IV SCH (14:04)
[2017-10-13] MEDS: Magnesium 1GM/D5W 100ML PREMIX 100 ML IV SCH ×2 (14:45→15:45)
[2017-10-13 16:00] VITALS: BP 127/90
[2017-10-13] MEDS: PIPERACILLIN /TAZOBACTAM 3.375 G in IV NS 0.9% 50 ML IV SCH ×2 (18:49→23:56)
--- NOTE | 2017-10-13 19:25 | NUR ---
RN OPENING NOTES PT RESTING IN BED. NO S/S OF PAIN, DISTRESS, OR SOB AT THIS TIME. PT HAS MCKENZIE CATHETER INTACT AND DRAINING WELL. PT HAS LFA #24 AND RFA #22, INTACT AND PATENT. PT HAS GTUBE PLACEMENT TODAY, RUNNING 60ML/HR FIBERSOURCE. SAFETY PRECAUTIONS IN PLACE. BED IN LOW LOCKED POSITION, [id number] UP, CALL LIGHT WITHIN REACH. WILL CONTINUE TO MONITOR.
--- NOTE | 2017-10-13 19:46 | NUR ---
CHANGE OF SHIFT REPORT PT RESTING COMFORTABLY IN BED. NO S/S OR C/O PAIN OR DISTRESS NOTED. SIDE RAILS UP X2, CALL LIGHT LEFT WITHIN REACH. PT KEPT CLEAN, DRY, AND COMFORTABLE. NO SIGNIFICANT CHANGES SINCE PREVIOUS SHIFT.
[2017-10-13 20:00] VITALS: BP_SYST 125; BP_SYST 131; BP_DIAS 83
[2017-10-14] MEDS: ALBUTEROL HALF STRENGTH 1.25 MG/3 ML VIAL.NEB NEB SCH ×4 (01:30→19:57)
[2017-10-14] MEDS: IPRATROPIUM NEB FS 0.5 MG/2.5 ML AMPUL.NEB NEB SCH ×4 (01:30→19:57)
[2017-10-14] MEDS: PIPERACILLIN /TAZOBACTAM 3.375 G in IV NS 0.9% 50 ML IV SCH ×3 (05:09→17:02)
--- NOTE | 2017-10-14 06:50 | NUR ---
RN CLOSING NOTES PT RESTING IN BED. NO COMPLAINTS OF PAIN, DISTRESS, OR SOB OVER NIGHT. PT REFUSED RT. PT IS CONFUSED BUT PLEASANT. PT HAS A LEFT FA #24 AND A RIGHT FA #22, BOTH INTACT AND PATENT. PT HAS A NEWLY REPLACED GTUBE (10/13/17). PT HAS GTUBE FEEDING FIBERSOURCE @60ML/HR. PT TOLERATING WELL. NO SIGNIFICANT CHANGES OVERNIGHT. SAFETY PRECAUTIONS IN PLACE. WILL ENDORSE TO DAY SHIFT NURSE FOR CONTINUITY OF CARE.
[2017-10-14 06:57] LABS: BASOPHILS # (AUTO) 0.1 /CMM (0.0-0.2); BASOPHILS % (AUTO) 0.9 % (0.0-2.0); EOSINOPHILS # (AUTO) 0.8 /CMM (0.0-0.7); EOSINOPHILS % (AUTO) 5.2 % (0.0-6.0); HEMATOCRIT 30 % (39-51); HEMOGLOBIN 10.4 g/dL (13.5-17.5); LYMPHOCYTES # (AUTO) 1.9 /CMM (0.8-4.8); MEAN CORPUSCULAR HEMOGLOBIN 32 PG (26.0-33.0); MEAN CORPUSCULAR HGB CONC 34 g/dl (31.0-36.0); MEAN CORPUSCULAR VOLUME 93 fL (80-96); MONOCYTES # (AUTO) 0.8 /CMM (0.1-1.30); MONOCYTES % (AUTO) 5.3 % (2.0-12.0); NEUTROPHILS % (AUTO) 75.6 % (43.0-81.0); PLATELET COUNT (AUTO) 308 /CMM (150-450); RDW COEFFICIENT OF VARIATION 17.4 (11.5-15.0); RED BLOOD CELL COUNT(AUTO) 3.23 MIL/uL (4.5-6.0); WHITE BLOOD COUNT (AUTO) 14.5 K/uL (4.3-11.0)
[2017-10-14 06:59] LABS: CALCIUM, SERUM 8.8 mg/dL (8.5-10.1); CREATININE 2.2 mg/dL (0.6-1.3); PHOSPHORUS 3.3 mg/dL (2.5-4.9); POTASSIUM 3.8 mmol/L (3.5-5.1)
--- NOTE | 2017-10-14 07:05 | NUR ---
RN NOTES PT IS LAYING IN BED, SLEEPING COMFORTABLY. PT ON O2, RESPIRATIONS ARE EVEN AND UNLABORED. IV ON LFA INTACT AND SL, IV ON RFA INTACT AND RUNNING TKO. MCKENZIE CATHETER IS INTACT AND DRAINING. G-TUBE IS INTACT AND RUNNING FIBERSOURCE @ 60ML/HR. SAFETY MEASURES ARE IN PLACE, CALL LIGHT IS IN REACH. WILL CONTINUE TO MONITOR.
[2017-10-14 08:00] VITALS: BP_SYST 116; BP_DIAS 76; BP_DIAS 78
[2017-10-14] MEDS: LACTOBACILLUS RHAMNOSUS GG 1 EACH CAP.SPRINK GT SCH ×2 (08:21→16:04)
[2017-10-14] MEDS: OXCARBAZEPINE 150 MG TABLET PO SCH ×3 (08:21→16:04)
[2017-10-14] MEDS: PANTOPRAZOLE 40 MG VIAL IV SCH (08:21)
[2017-10-14] MEDS: CLOTRIMAZOLE 1% 15 GM TUBE TP SCH ×2 (08:22→16:04)
[2017-10-14] MEDS: LEVETIRACETAM (500MG) 500 MG in IV NS 0.9% 100 ML IV SCH ×2 (09:09→22:39)
[2017-10-14] MEDS: FIBERSOURCE HN 1,000 ML BOTTLE GT PRN (09:31)
[2017-10-14] MEDS: VANCOMYCIN 0.75 GM in IV D5W 250 ML IV SCH (13:00)
[2017-10-14 16:00] VITALS: BP 126/85
--- NOTE | 2017-10-14 18:29 | NUR ---
RN NOTES PT IS RESTING IN BED COMFORTABLY. PT ON 2L O2, RESPIRATIONS ARE EVEN AND UNLABORED. IV ON RFA INTACT AND RUNNING TKO. MCKENZIE CATHETER IS INTACT AND DRAINING, 800 ML OUTPUT. ALL MEDS GIVEN ORDERED. PT KEPT CLEAN AND DRY, LOTRIMIN APPLIED TO GROIN AREA FOR REDNESS. SAFETY MEASURES ARE IN PLACE, CALL LIGHT IS IN REACH. WILL ENDORSE TO ROLL TRUCKER RN FOR CONTINUITY OF CARE.
--- NOTE | 2017-10-14 19:35 | NUR ---
MS/RN OPENING NOTES PT RECEIVED AWAKE, RESTING COMFORTABLY IN BED. A/OX2. ON ROOM AIR, BREATHING EVEN AND UNLABORED. IN NO OBVIOUS DISTRESS. DENIES SOB OR PAIN AT THIS TIME. IV TO RFA PATENT AND INTACT. GT FEEDING RUNNING ORDERED. BED IN LOW/LOCKED POSITION WITH CALL LIGHT IN REACH. SIDE RAILS UPX3 WITH BED ALARM ON. WILL CONTINUE TO MONITOR
[2017-10-14 20:00] VITALS: BP 137/83
--- NOTE | 2017-10-14 20:49 | NUR ---
MS/RN NOTES SPOKE TO PHARMACY. NOTIFIED HER OF VANCO TROUGH TODAY 24 AND PHARMACY NOTE TO ADJUST DOSING TO 750MG IV Q36H. NO ADDITIONAL VANCO TROUGHS ORDERED FOR TONIGHT. CLARIFIED TO SEE IF I CAN GIVE THE 0100 DOSE TONIGHT. SHE SAID YES. WILL CARRY OUT.
[2017-10-14] MEDS: CEFEPIME 1 GM in IV D5W 50 ML IV SCH (21:28)
[2017-10-15] MEDS: VANCOMYCIN 0.75 GM in IV D5W 250 ML IV SCH (01:01)
--- NOTE | 2017-10-15 01:03 | NUR ---
MS/RN NOTES WHEN SCANNING VANCO BARCODE, BRINGS UP "DISCONTINUED" VANCO ON EMAR. VERIFIED DOSING, EVERYTHING IS CORRECT FOR SCHEDULE DOSE TONIGHT AT 0100. MANUAL ADMINISTRATION COMPLETED.
[2017-10-15] MEDS: IPRATROPIUM NEB FS 0.5 MG/2.5 ML AMPUL.NEB NEB SCH ×4 (01:32→21:50)
[2017-10-15] MEDS: ALBUTEROL HALF STRENGTH 1.25 MG/3 ML VIAL.NEB NEB SCH ×4 (01:32→21:50)
--- NOTE | 2017-10-15 07:00 | NUR ---
MS/RN CLOSING NOTES PT RESTING COMFORTABLY IN BED. EASILY AROUSABLE TO NAME. ON 2L O2 VIA NC, BREATHING EVEN AND UNLABORED. IN NO DISTRESS. DENIES SOB OR PAIN. KEPT PT COMFORTABLE DURING SHIFT. ALL NEEDS MET. IV TO RFA PATENT AND INTACT. NO SIGNIFICANT CHANGES OVERNIGHT. GT FEEDING RUNNING ORDERED. BED IN LOW/LOCKED POSITION WITH CALL LIGHT IN REACH. SIDE RAILS UPX3 WITH BED ALARM ON. ENDORSED TO DAY SHIFT RN CIRA.
--- NOTE | 2017-10-15 07:05 | NUR ---
RN NOTES PT IS RESTING IN BED, NO SIGNS OF DISTRESS NOTED. PT ON 2L O2, RESPIRATIONS ARE EVEN AND UNLABORED. IV ON RFA INTACT AND PATENT. G-TUBE IS INTACT AND RUNNING FIBERSOURCE @ 60ML/HR. MCKENZIE CATHETER IS INTACT AND DRAINING. SAFETY MEASURES ARE IN PLACE, CALL LIGHT IS IN REACH. WILL CONTINUE TO MONITOR.
[2017-10-15 07:15] LABS: CREATININE 2.1 mg/dL (0.6-1.3); POTASSIUM 3.6 mmol/L (3.5-5.1)
[2017-10-15 08:00] VITALS: BP 116/80
[2017-10-15] MEDS: LACTOBACILLUS RHAMNOSUS GG 1 EACH CAP.SPRINK GT SCH ×2 (08:36→16:04)
[2017-10-15] MEDS: OXCARBAZEPINE 150 MG TABLET PO SCH ×3 (08:36→16:04)
[2017-10-15] MEDS: CLOTRIMAZOLE 1% 15 GM TUBE TP SCH ×2 (08:40→16:04)
[2017-10-15] MEDS: PANTOPRAZOLE 40 MG VIAL IV SCH (08:40)
[2017-10-15] MEDS: LEVETIRACETAM SOL (5 ML) 100 MG/ML UDC NG SCH ×2 (08:49→21:18)
[2017-10-15] MEDS: FIBERSOURCE HN 1,000 ML BOTTLE GT PRN (09:41)
[2017-10-15 16:00] VITALS: BP 108/60
--- NOTE | 2017-10-15 18:45 | NUR ---
RN NOTES PT IS LAYING DOWN IN BED, RESTING COMFORTABLY. PT ON 2L O2, RESPIRATIONS ARE EVEN AND UNLABORED. IV ON RFA INTACT AND SL. ALL MEDS WERE GIVEN ORDERED AND PT NEEDS MET. MCKENZIE CATHETER IS INTACT AND DRAINING. G-TUBE IS INTACT AND RUNNING FIBERSOURCE @ 60ML/HR. SAFETY MEASURES ARE IN PLACE, CALL LIGHT IS IN REACH. WILL ENDORSE TO PAN PULLER RN FOR CONTINUITY OF CARE.
--- NOTE | 2017-10-15 19:10 | NUR ---
MS/RN OPENING NOTES PT RECEIVED WITH EYES CLOSED. EASILY AROUSABLE TO NEARBY NOISE. A/OX2. CURRENTLY ON ROOM AIR, BREATHING EVEN AND UNLABORED. IN NO OBVIOUS DISTRESS. BREATHING IS EVEN AND UNLABORED. NO S/S OF SOB. DENIES PAIN AT THIS TIME AND SAYS HE IS COMFORTABLE. MCKENZIE IN PLACE AND DRAINING TO GRAVITY. DREW TO LEFT ANTERIOR/LATERAL SCALP CLEAN DRY AND OPEN TO AIR. GT FEEDING RUNNING FIBERSOURCE AT 60ML/HR. IV TO RFA PATENT AND INTACT. BED IN LOW/LOCKED POSITION WITH CALL LIGHT IN REACH. SIDE RAILS UPX2 WITH BED ALARM ON FOR SAFETY. WILL CONTINUE TO MONITOR
[2017-10-15 20:00] VITALS: BP 122/80
[2017-10-15] MEDS: CEFEPIME 1 GM in IV D5W 50 ML IV SCH (21:18)
[2017-10-16] MEDS: ALBUTEROL HALF STRENGTH 1.25 MG/3 ML VIAL.NEB NEB SCH ×4 (03:20→20:54)
[2017-10-16] MEDS: IPRATROPIUM NEB FS 0.5 MG/2.5 ML AMPUL.NEB NEB SCH ×4 (03:20→20:54)
--- NOTE | 2017-10-16 07:00 | NUR ---
RN NOTES PATIENT RESTING AOX2, NO SIGNS OF DISTRESS NOTED. NO SOB NOTED. CLEAR SPEECH NOTED. IV SITE ON RFA PATENT AND INTACT. BED IN LOWEST LOCKED POSITION. CALL LIGHT WITHIN REACH. WILL CONTINUE TO MONITOR
--- NOTE | 2017-10-16 07:29 | NUR ---
MS/RN CLOSING NOTES PT RESTING COMFORTABLY IN BED. A/OX2. ON ROOM AIR, BREATHING EVEN AND UNLABORED. NO SOB OR PAIN AT THIS TIME. IN NO DISTRESS. IV TO RFA PATENT AND INTACT. GT FEEDING RUNNING ORDERED. NO RESIDUALS. KEPT PT COMFORTABLE DURING SHIFT. ALL NEEDS MET. TURNED/REPOSITIONED Q2H. WOUND CARE PROVIDED ORDERED. NO SIGNIFICANT CHANGES OVERNIGHT. BED REMAINS IN LOW/LOCKED POSITION WITH CALL LIGHT IN REACH. SIDE RAILS UPX2. ENDORSED TO DAY SHIFT RN CIRA.
[2017-10-16 08:00] VITALS: BP 108/74
[2017-10-16] MEDS: PANTOPRAZOLE 40 MG VIAL IV SCH (08:21)
[2017-10-16] MEDS: OXCARBAZEPINE 150 MG TABLET PO SCH ×3 (08:24→16:58)
[2017-10-16] MEDS: LEVETIRACETAM SOL (5 ML) 100 MG/ML UDC NG SCH ×2 (08:25→21:38)
[2017-10-16] MEDS: LACTOBACILLUS RHAMNOSUS GG 1 EACH CAP.SPRINK GT SCH ×2 (08:25→16:54)
[2017-10-16] MEDS: CLOTRIMAZOLE 1% 15 GM TUBE TP SCH ×2 (08:28→17:01)
[2017-10-16] MEDS: FIBERSOURCE HN 1,000 ML BOTTLE GT PRN (10:17)
[2017-10-16 12:05] LABS: CALCIUM, SERUM 9.2 mg/dL (8.5-10.1); CREATININE 1.9 mg/dL (0.6-1.3); POTASSIUM 3.5 mmol/L (3.5-5.1)
[2017-10-16] MEDS: VANCOMYCIN 0.75 GM in IV D5W 250 ML IV SCH (13:48)
--- NOTE | 2017-10-16 13:59 | NUR ---
RN NOTES: ADMINISTER VANCO 0.75 GM PER DERRELL FROM PHARMACY
[2017-10-16] MEDS ORDERED: CEFE1FRO IV (14:11)
[2017-10-16] MEDS ORDERED: VANC750P7 IV (14:11)
[2017-10-16 16:00] VITALS: BP 118/70
--- NOTE | 2017-10-16 16:08 | NUR ---
RN NOTES: GTUBE AT 65ML/HOUR PER DIETARY RECOMMENDATION. NO RESIDUALS NOTED. PATIENT TOLERATING DIET SO FAR. PATIENT REFUSED PURREED DIET FOR ORAL GRATIFICATION
--- NOTE | 2017-10-16 18:57 | NUR ---
RN NOTES: NEURO CHECKS DONE Q1 HOUR. PATIENT PERRLA. NO NEW ONSET OF WEAKNESS NOTED. PATIENT DENIES HEADACHES. BP WNL. SEIZURE PRECAUTIONS IMPLEMENTED. NO SEIZURES DURING SHIFT
--- NOTE | 2017-10-16 19:15 | NUR ---
RN NOTES: PATIENT RESTING IN BED. NONLABORED BREATHING NOTED ON ROOM AIR. NO SIGNS OF DISTRESS NOTED. IV SITE ON RIGHT AC PATENT AND INTACT. PATIENT DENIES PAIN. NO FACIAL GRIMACING NOTED. PATIENT TURNED AND REPOSITONED EVERY 2 HOURS. KEPT CLEAN AND DRY. AWAITING CASE BED CONFIRMATION FROM [facility]
[2017-10-16 20:00] VITALS: BP 108/75
--- NOTE | 2017-10-16 20:00 | NUR ---
MS/POST OFFICE CLERK; RECEIVED PT IN BED AWAKE ,ALERT AND VERBALLY RESPONSIVE BUT WITH CONFUSION. HOB ELEVATED AT 45 DEGREES. BREATHING NON LABORED. ON GT FEEDING INFUSING WITH 20 ML RESIDUAL. GT SITE INTACT NO DRAINAGE NOTED. HL ON RFA INTACT. FC INTACT WITH 100 ML CLEAR YELLOW URINE. WITH DVT PUMP BOTH LOWER LEGS. NOTED PT'S LT SIDE OF HIS HEAD INCISION WITH DREW NO DRESSING DRY AND INTACT. BED ON LOWER POSITION AND LOCKED FOR SAFETY. SIDE RAILS X 3 ARE UP FOR SAFETY. CONTINUE TO MONITOR. CALL LIGHT WITHIN REACH.
[2017-10-16] MEDS: CEFEPIME 1 GM in IV D5W 50 ML IV SCH (21:00)
--- NOTE | 2017-10-16 22:00 | NUR ---
MS/DINKING MACHINE OPERATOR; PT INCONTINENT OF BM MOD. AMOUNT YELLOW COLOR SOFT. SUMAYA ANAL CARE RENDERED BY THE RUBBER FACTORY WORKER. DIAPER CHANGED. REPOSITIONED.
--- NOTE | 2017-10-16 23:00 | NUR ---
MS/VETERINARY TECHNICIAN; NEW IV LINE STARTED BY THE RN ON PT'S LFA # 22 ANGIO CATH. PREVIOUS IV SITE ON RFA IS SWOLLEN WILL REMOVE.
[2017-10-17] MEDS: IPRATROPIUM NEB FS 0.5 MG/2.5 ML AMPUL.NEB NEB SCH ×4 (02:36→21:31)
[2017-10-17] MEDS: ALBUTEROL HALF STRENGTH 1.25 MG/3 ML VIAL.NEB NEB SCH ×4 (02:36→21:31)
[2017-10-17] MEDS: FIBERSOURCE HN 1,000 ML BOTTLE GT PRN ×2 (03:50→18:53)
--- NOTE | 2017-10-17 06:42 | NUR ---
MS/ROLL SETTER; SLEPT FAIRLY. GT FEEDING ON PROGRESS NO N/V NOTED. WILL ENDORSE TO THE DAY SHIFT NURSE FOR CONTINUITY OF CARE.
--- NOTE | 2017-10-17 07:37 | NUR ---
RN OPEN NOTES RECEIVED REPORT FROM SUPERVISOR POWDERED SUGAR NURSE. PATIENT IS IN BED, ALERT AND ORIENTED TO SELF ONLY. NO SIGNS AND SYMPTOMS OF DISTRESS. BED IN LOW POSITION, LOCKED AND TWO SIDE RAILS ARE UP, CALL LIGHT WITHIN REACH. WILL CONTINUE TO MONITOR AND ASSESS PATIENT.
[2017-10-17 08:00] VITALS: BP 116/81
[2017-10-17] MEDS: LACTOBACILLUS RHAMNOSUS GG 1 EACH CAP.SPRINK GT SCH ×2 (08:24→16:35)
[2017-10-17] MEDS: PANTOPRAZOLE 40 MG VIAL IV SCH (08:24)
[2017-10-17] MEDS: OXCARBAZEPINE 150 MG TABLET PO SCH ×3 (08:24→16:35)
[2017-10-17] MEDS: CLOTRIMAZOLE 1% 15 GM TUBE TP SCH ×2 (08:24→16:35)
[2017-10-17] MEDS: LEVETIRACETAM SOL (5 ML) 100 MG/ML UDC NG SCH ×2 (08:25→21:03)
[2017-10-17 08:41] LABS: CALCIUM, SERUM 9.6 mg/dL (8.5-10.1); CREATININE 1.8 mg/dL (0.6-1.3); POTASSIUM 4.2 mmol/L (3.5-5.1)
[2017-10-17 16:00] VITALS: BP 109/68
--- NOTE | 2017-10-17 18:38 | NUR ---
RN CLOSING NOTES PT RESTING COMFORTABLY IN BED. ALERT AND ORIENTED TO SELF ONLY. STABLE ON ROOM AIR, BREATHING EVEN AND UNLABORED. NO SOB OR PAIN AT THIS TIME. IN NO DISTRESS. GT FEEDING RUNNING ORDERED. NO RESIDUALS. KEPT PT COMFORTABLE DURING SHIFT. ALL NEEDS MET. TURNED/REPOSITIONED Q2H. WOUND CARE PROVIDED ORDERED. NO SIGNIFICANT CHANGES DURING THE SHIFT. BED REMAINS IN LOW/LOCKED POSITION WITH CALL LIGHT IN REACH. SIDE RAILS UPX2. POSSIBLE DC TONIGHT IF BED BECOMES AVAILABLE TO [facility]. WILL ENDORSE TO PULMONOLOGY PHYSICIAN NURSE.
--- NOTE | 2017-10-17 19:30 | NUR ---
RN NOTES: RECEIVED AWAKE LYING ON BED,ON RA SPO2-93%,NO SOB OR SIGN OF RESPIRATORY DISTRESS NOTED UPON ENDORSEMENT,A/O TO NAME ONLY, ABLE TO MAKE NEEDS KNOWN,FALL,SAFETY AND ASPIRATION PRECAUTION OBSERVED, CALLS AND NEEDS ATTENDED.CALL LIGHT KEPT WITHIN EASY REACH.PEG TUBE IN SITE WITH FEEDING OF FIBERSOURCE ONGOING AT 65 ML/HR NEW BAG STARTED AROUND 30 MINUTES AGO.HL-LFA INTACT,ON MCKENZIE CATH F 16/10ML DRAINING INTO YELLOWISH COLORED UIRNE FOR POSSIBLE DISCHARGE TONIGHT IF BED IS READY.
[2017-10-17 20:00] VITALS: BP 119/76
[2017-10-17] MEDS: CEFEPIME 1 GM in IV D5W 50 ML IV SCH (21:02)
--- NOTE | 2017-10-17 21:03 | NUR ---
RN NOTES: AWAKE AT SHORT INTERVAL, KEPT ON CLOSE WATCH, HIGH RISK FOR FALL,BED LOW AND LOCKED, DUE PEG&IV MEDICATION GIVEN,INSTRUCT PATIENT TO USE CALL LIGHT, KEPT WITHIN EASY REACH.
--- NOTE | 2017-10-17 21:43 | NUR ---
RN NOTES: F/U WITH RT TO GIVE ROUTINE NEBULIZATION.GIVEN.
[2017-10-18] MEDS: VANCOMYCIN 0.75 GM in IV D5W 250 ML IV SCH (00:28)
--- NOTE | 2017-10-18 00:50 | NUR ---
RN NOTES: -HAD BOWEL MOVEMENT,MORNING CARE RENDERED,CLEAN AND CHANGE.
[2017-10-18] MEDS: IPRATROPIUM NEB FS 0.5 MG/2.5 ML AMPUL.NEB NEB SCH ×2 (01:12→07:35)
[2017-10-18] MEDS: ALBUTEROL HALF STRENGTH 1.25 MG/3 ML VIAL.NEB NEB SCH ×2 (01:12→07:35)
--- NOTE | 2017-10-18 02:59 | NUR ---
RN NOTES: PATIENT ABLE TO REST AND SLEEP, FALL AND SAFETY PRECAUTION OBSERVED, ON CLOSE WATCH, CALL LIGHT WITHIN EASY REACH.
--- NOTE | 2017-10-18 04:12 | NUR ---
RN NOTES: AT 0400 IV CANNULA WAS ACCIDENTALLY PULLED WHEN PATIENT TURN TO SIDES,EXPLAINED TO PATIENT NEED TO REINSERT A NEW CANNULA, HE AGREED, INSERTED TO RFA G#22 1 ATTEMPT WITH GOOD BACK FLOW.SECURED WITH TRANSPARENT DRESSING.KEPT IN COMFORTABLE POSITION, PATIENT GET BACK TO SLEEP.
--- NOTE | 2017-10-18 06:38 | NUR ---
RN NOTES: AWAKE KEPT ON CLOSE WATCH,PEG FEEDING ONGOING,MCKENZIE CATH DRAINING WELL, OUTPUT-1,050,BED LOW AND LOCKED,ALARM ON AT ALL TIMES,CALL LIGHT WITHIN EASY REACH,ENDORSED FOR CONTINUITY OF CARE.
[2017-10-18 08:00] VITALS: BP 107/68
--- NOTE | 2017-10-18 08:00 | NUR ---
MS RN NOTE PATIENT IN BED RESTING NO SOB OR ACUTE DISTRESS NOTED. PATIENT WITH G0TUBE INTACT PATENT WITH PRESCRIBED FEEDING. PERIPHERAL IV INTACT PATENT. BED IN LOW LOCKED POSITION , CALL LIGHT WITHIN REACH. WILL CONTINUE TO MONITOR.
[2017-10-18] MEDS: LACTOBACILLUS RHAMNOSUS GG 1 EACH CAP.SPRINK GT SCH (08:39)
[2017-10-18] MEDS: LEVETIRACETAM SOL (5 ML) 100 MG/ML UDC NG SCH (08:40)
[2017-10-18] MEDS: PANTOPRAZOLE 40 MG VIAL IV SCH (08:40)
[2017-10-18] MEDS: OXCARBAZEPINE 150 MG TABLET PO SCH ×2 (08:40→13:28)
[2017-10-18] MEDS: CLOTRIMAZOLE 1% 15 GM TUBE TP SCH (08:40)
[2017-10-18 08:56] LABS: CALCIUM, SERUM 9.4 mg/dL (8.5-10.1); CREATININE 1.7 mg/dL (0.6-1.3); POTASSIUM 4.1 mmol/L (3.5-5.1)
[2017-10-18] MEDS: FIBERSOURCE HN 1,000 ML BOTTLE GT PRN (10:22)
--- NOTE | 2017-10-18 11:00 | NUR ---
MS RN NOTES PATIENT SEEN AND EVALUATED BY DR. GOODMAN ORDERS NOTED AND CARRIED OUT.
--- NOTE | 2017-10-18 13:40 | NUR ---
MS RN NOTES PATIENT TRANSFERRED TO [facility] FOR HIGHER LEVEL OF CARE. PATIENT WITH NO BELONGINGS. NOTIFIED PATIENTS MOTHER VIA TELEPHONE. REPORT GIVEN TO JAN TAVAREZ AT HOSPITAL. PATIENT GOING TO ROOM 550-1. PATIENT IN STABLE CONDITION. ALL DUE MEDICATIONS ADMINISTERED. DISCHARGE PAPERWORK COMPLETED. PATIENT TRANSFERRED VIA AMBULANCE WITH EMT.
== END 2017-10-18 13:40 | disposition short-term general hospital (02) | DRG 720 ==
LOC: ER 01:27 → ICU 03:35 → TELE 10-09 12:11 → MED 10-10 08:59
PROVIDERS: ADMIT Internal Medicine; ATTEND Internal Medicine
PROC: 0DH63UZ Insertion of Feeding Device into Stomach, Percutaneous Approach (ICD-10-PCS; principal; 2017-10-13 10:30)
DX: A41.9 Sepsis, unspecified organism (principal); J96.01 Acute respiratory failure with hypoxia; N17.0 Acute kidney failure with tubular necrosis; J69.0 Pneumonitis due to inhalation of food and vomit; G06.0 Intracranial abscess and granuloma; E87.2 Acidosis; E43 Unspecified severe protein-calorie malnutrition; R13.10 Dysphagia, unspecified; G92 Toxic encephalopathy; S06.5X0A Traumatic subdural hemorrhage without loss of consciousness, initial encounter; E83.42 Hypomagnesemia; L89.150 Pressure ulcer of sacral region, unstageable; J15.6 Pneumonia due to other Gram-negative bacteria; E86.0 Dehydration; E87.6 Hypokalemia; N18.9 Chronic kidney disease, unspecified; K21.9 Gastro-esophageal reflux disease without esophagitis; L98.8 Other specified disorders of the skin and subcutaneous tissue; Z68.22 Body mass index [BMI] 22.0-22.9, adult; L30.4 Erythema intertrigo; E87.0 Hyperosmolality and hypernatremia; D63.1 Anemia in chronic kidney disease; T81.4XXA Infection following a procedure, initial encounter; L03.811 Cellulitis of head [any part, except face]; N40.0 Benign prostatic hyperplasia without lower urinary tract symptoms; Z87.820 Personal history of traumatic brain injury; X58.XXXA Exposure to other specified factors, initial encounter; Y93.9 Activity, unspecified; Y92.89 Other specified places as the place of occurrence of the external cause; R56.9 Unspecified convulsions
CPT/HCPCS: 36415; 36600; 43761; 70450-TC; 70551-TC; 71045-TC; 76700-TC; 80048-TC; 80053-TC; 80061-TC; 80076-TC; 80202-TC; 81000-TC; 82570-TC; 82803-TC; 83605-TC; 83735-TC; 84100-TC; 84300-TC; 84484-TC; 85025-TC; 85652-TC; 85730-TC; 86140-TC; 87040-TC; 87081-TC; 87086-TC; 87400; 92526; 92611-TC; 93307-TC; 94799-TC; 95819-TC; 99082-TC; A4216; A4606; A6402; A6403; C9113; J0692; J1953; J2543; J3370; J3475; J3480; J3490; J7030; J7042; J7050; J7060; Z7610